=== PATIENT | male | born 1955 | race Caucasian/White ===

== ENCOUNTER 2021-07-06 11:10 | Emergency (ER) | payer BC ==
[~2021-07-06] VITALS: Ht 177.8 cm; Wt 114.4 kg
[~2021-07-06 11:10] MED LIST: CELEXA10 MG PO; HYDROCODON-ACE1 EA11 PO; NORCO 5-325 TA1 EACH PO
--- OUTSIDE RECORDS SUMMARY | 2021-07-06 11:12 | XMS ---
PreManage Notification: CHATA FRANKLIN Security Equipment Processer Storage Events No recent Security Events currently on file [facility] There are no care providers on record at this time. Sky has no Care Guidelines for this patient. Aleksandr VISIT COUNT (12 MO.) 1 DEXTER Worley TOTAL 1 NOTE: Visits indicate total known visits. ED/C VISIT TRACKING (12 MO.) 07/06/2021 11:10 [facility] [place] TYPE: Emergency COMPLAINT: - LOWER BACK PAIN LEFT SIDE INPATIENT VISIT TRACKING (12 MO.) No inpatient visits to display in this time frame [email or web address]
[2021-07-06] MEDS ORDERED: GLIPIZIDE ER10 MG PO (12:19)
[2021-07-06] MEDS ORDERED: DULOXETINE HCL60 MG PO (12:19)
[2021-07-06] MEDS ORDERED: METFORMIN HCL500 M1 PO (12:19)
[2021-07-06] MEDS ORDERED: GABAPENTIN300 MG PO (12:20)
[2021-07-06] MEDS ORDERED: CELECOXIB100 MG PO (12:20)
[2021-07-06] MEDS ORDERED: OXYCODONE HCL5 MG PO (15:38)
[2021-07-06] MEDS ORDERED: FLOMAX0.4 MG PO (15:38)
[2021-07-06] MEDS ORDERED: ONDANSETRON ODT4 MG PO (15:42)
== END 2021-07-06 16:10 | disposition home or self-care (01) ==
LOC: ED 11:10
DX: N13.2 Hydronephrosis with renal and ureteral calculous obstruction (principal); I10 Essential (primary) hypertension; E11.9 Type 2 diabetes mellitus without complications; Z87.891 Personal history of nicotine dependence; Z88.5 Allergy status to narcotic agent; Z79.84 Long term (current) use of oral hypoglycemic drugs; Z79.899 Other long term (current) drug therapy
CPT/HCPCS: 74176; 80048; 81001; 85025; 96374; 99284-25; J1885

== ENCOUNTER 2022-03-17 10:27 | Emergency (ER) | payer BC ==
[~2022-03-17] VITALS: Ht 177.8 cm; Wt 112.9 kg
[~2022-03-17 10:27] MED LIST changes: +CELECOXIB100 MG PO; +DULOXETINE HCL60 MG PO; +FLOMAX0.4 MG PO; +GABAPENTIN300 MG PO; +GLIPIZIDE ER10 MG PO; +METFORMIN HCL500 M1 PO; +ONDANSETRON ODT4 MG PO; +OXYCODONE HCL5 MG PO
--- OUTSIDE RECORDS SUMMARY | 2022-03-17 10:34 | XMS ---
PreManage Notification: CHATA FRANKLIN Security Parts Expediter Events No recent Security Events currently on file CRITERIA MET - PDM CARE PROVIDERS LASHAUN [facility] 07/08/2021-Current PHONE: Unknown Sky has no Care Guidelines for this patient. EPelon VISIT COUNT (12 MO.) 1 Karthik Moran M.C. 2 DEXTER Worley TOTAL 3 NOTE: Visits indicate total known visits. ED/UCC VISIT TRACKING (12 MO.) 03/17/2022 10:28 [facility] [place] TYPE: Emergency COMPLAINT: - FLU SYMPTOMS, SOB [facility] DIAGNOSES: - Poss kidney stone - Nausea - Unspecified renal colic - Flank Pain - Calculus of ureter 07/06/2021 11:10 [facility] [place] TYPE: Emergency COMPLAINT: - LOWER BACK PAIN LEFT SIDE DIAGNOSES: - Allergy status to narcotic agent - Unspecified abdominal pain - Type 2 diabetes mellitus without complications - half-way (current) use of oral hypoglycemic drugs - Essential (primary) hypertension - Other silk opener (current) drug therapy - Hydronephrosis with renal and ureteral calculous obstruction - Personal history of nicotine dependence INPATIENT VISIT TRACKING (12 MO.) No inpatient visits to display in this time frame [id number]
[2022-03-17] MEDS ORDERED: CHLORTHALIDONE25 MG PO (11:00)
--- NOTE | 2022-03-17 14:04 | EKG ---
[facility] [address] [facility] [place] [address] Signed Normal sinus rhythm Normal ECG When compared with ECG of 05-AUG-2021 11:32, No significant change was found Confirmed by GLADYS PURDY MD ([id number]) on 03/17/2022 2:04:45 PM Electronically Signed By: GLADYS PURDY MD 03/17/22 1404 PATIENT NAME: SWEETIEMARANDACHATA Electrocardiogram DATE OF : 59 PHYSICIAN: GLADYS PURDY MD REPORT #: [id number] REPORT IS CONFIDENTIAL AND NOT TO BE RELEASED WITHOUT AUTHORIZATION
== END 2022-03-17 12:54 | disposition home or self-care (01) ==
LOC: ED 10:27
DX: U07.1 COVID-19 (principal); I10 Essential (primary) hypertension; E11.9 Type 2 diabetes mellitus without complications; Z87.891 Personal history of nicotine dependence; Z88.5 Allergy status to narcotic agent; Z79.899 Other long term (current) drug therapy; Z79.84 Long term (current) use of oral hypoglycemic drugs
CPT/HCPCS: 71045; 93005; 93010; 94640; 94664

== ENCOUNTER 2023-02-11 10:20 | Day surgery (SDC) | payer OTHER ==
[2023-02-09 11:33] VITALS: BP 110/77
[~2023-02-11] VITALS: Ht 177.8 cm; Wt 105.0 kg
--- NOTE | ~2023-02-11 | EKG ---
[facility] [address] [facility] [place], [place] [address] Draft EK completed, results pending confirmation PATIENT NAME: NOEMICHATA KOEHLER Electrocardiogram DATE OF : 59 PHYSICIAN: PRELIMINARY REPORT #: [id number] REPORT IS CONFIDENTIAL AND NOT TO BE RELEASED WITHOUT AUTHORIZATION
[~2023-02-11 10:20] MED LIST changes: +CHLORTHALIDONE25 MG PO; +LABETALOL HCL100 MG PO; +LISINOPRIL20 MG PO
[2023-02-11 10:47] VITALS: BP 134/86
[2023-02-11] MEDS ORDERED: OZEMPIC0.25 MG/0. SUB-Q (10:57)
[2023-02-11 12:21] VITALS: BP 117/77
--- NOTE | 2023-02-11 12:55 | NUR ---
02/11/23 1255 Maria Victoria Díaz 1205 PT ARRIVED IN PACU SLEEPY LAYING PRONE. REPOSITIONED TO L SIDE WITH 3 PERSON ASSIST. [address] TO TRANSFER PT TO ER. 1220 TC TO ER WITH UPDATE ON PT. 1230 TO ER VIA STRETCHER. REPORT GIVEN TO ER NURSES. FRIEND AT BEDSIDE.
--- NOTE | 2023-02-11 13:47 | NUR ---
1120: DURING CHECK IN PROCESS PATIENT ASKED IF HE COULD SPEAK WITH DR. HUYNH TODAY ABOUT CONCERNS REGARDING HIS DECLINE IN HEALTH SINCE SEEING DR. HUYNH LAST WEEK. PATIENT C/O SIGNIFICANT INCREASE IN FATIGUE AND SHORTNESS OF BREATH. ALSO C/O SOME CONFUSION AND CHANGES IN MENTATION. PATIENT STATES THIS HAS BEEN INCREASING OVER THE LAST WEEK. I NOTIFIED DR. HUYNH IN PERSON ABOUT PATIENT'S CONCERNS AND CONVEYED THAT I ALSO HAD CONCERNS ABOUT PATIENT STATUS. DR. HUYNH AGREED TO COME SPEAK WITH PATIENT IN DAY SURGERY ROOM.
--- NOTE | 2023-02-11 13:52 | NUR ---
1130: NOTIFIED BY LAB OF CRITICAL WBC COUNT. RESULT CALLED TO DR. HUYNH'S OFFICE. PALLIATIVE NURSE IN ROOM EVALUATING PATIENT. PALLIATIVE NURSE NOTIFIED OF PATIENT'S CRITICAL LAB. 1145: DR. HUYNH IN ROOM EVALUATING PATIENT.
[2023-02-11] MEDS ORDERED: HYDROCODON-ACE1 EA11 PO (20:17)
[2023-02-11] MEDS ORDERED: ALLOPURINOL300 MG PO (20:28)
--- NOTE | 2023-02-12 | EKG ---
[facility] [address] [place], [place] [address] Signed Normal sinus rhythm Normal ECG When compared with ECG of 11-FEB-2023 10:41, (Unconfirmed) No significant change was found Confirmed by MELVIN LEES MD ([id number]) on 02/12/2023 12:00:04 AM Electronically Signed By: MELVIN LEES MD 02/12/23 0000 PATIENT NAME: SWEETIEMARANDACHATA Electrocardiogram DATE OF : 59 PHYSICIAN: MELVIN LEES MD REPORT #: [id number] REPORT IS CONFIDENTIAL AND NOT TO BE RELEASED WITHOUT AUTHORIZATION
--- NOTE | 2023-02-13 17:58 | PATH ---
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 Evaluate MPN vs. AML. See attached. C92.10 (chronic myeloid leukemia, BCR/ABL-positive, not having achieved remission) DIAGNOSIS SUMMARY: Peripheral blood - Marked neutrophilia with left shift. - Negative for blasts. - Mild thrombocytopenia. Bone marrow aspirate smears, clot section/cell block and trephine biopsy - Hypercellular bone marrow with marked myeloid hyperplasia and features consistent with chronic myelogenous leukemia (CML). - Negative for dyspoiesis. - Negative for increased blasts. - Negative for increase in plasma cells or infiltrative bone marrow processes. - Please see Diagnostic Comment. DIAGNOSTIC COMMENT: The clinical concern for myeloproliferative neoplasm is noted. Morphologic evaluation of the bone marrow demonstrates markedly hypercellular bone marrow with myeloid hyperplasia. The myeloid are left-shifted, however, with no increase in blasts identified. Increased bone marrow reticulin fibrosis is also noted. Peripheral blood shows marked neutrophilia with shift toward immaturity, including many myelocytes. Overall morphologic features are consistent with myeloproliferative neoplasm. FISH study for BCR/ABL is positive consistent with chronic myelogenous leukemia (CML). Cytogenetic study and BCR/ABL by PCR are pending and will be reported in an addendum. Preliminary findings communicated to Dr. Jaime on 02/12/2023. NA:clm:C1NR PERIPHERAL BLOOD: HEMOGRAM ([facility], 02/11/2023): WBC 46.6 K/uL, RBC 5.02 M/uL, HGB 14.1 g/dL, HCT 43.4%, MCV 86.5 fL, MCH 28.1 pg, MCHC 32.5 g/dL, RDW 15.6%, PLT 147 K/uL, MPV 7.7 fL. PATIENT NAME: CHATA FRANKLIN PATHOLOGY DATE OF : 59 REPORT #: [id number] PHYSICIAN: PIETER VALLE PCP: POONAM WILKS MD REPORT IS CONFIDENTIAL AND NOT TO BE RELEASED WITHOUT AUTHORIZATION [facility] [address] [place], [place] [address] Signed DIFFERENTIAL COUNT (manual): 41% neutrophils, 23% lymphocytes, 12% monocytes, 4% eosinophils, 20% myelocytes. Review of the peripheral blood smear and CBC data demonstrates that the RBCs are normal in number and are normocytic and normochromic with no anemia present. The WBCs are markedly increased in number with marked neutrophilia and shift toward immaturity, including many myelocytes. No blasts are seen. Monocytosis is also present, and the monocytes have reactive morphology. The platelets are slightly decreased in number with unremarkable morphology. BONE MARROW: BONE MARROW ASPIRATE SMEARS: The bone marrow aspirate smears are adequately cellular for evaluation. Trilineage hematopoiesis is present with myeloid hyperplasia noted. There is a shift toward immaturity with many myelocytes and promyelocytes seen. No increase in blasts is identified. No dyserythropoiesis is present. The megakaryocytes are scattered and appear normal in number with many small micromegakaryocytes encountered. BONE MARROW DIFFERENTIAL COUNT: Blasts 2%, promyelocytes 7%, myelocytes 12%, neutrophils 47%, lymphocytes 11%, monocytes 2%, eosinophils 9%, and 12% erythroid. BONE MARROW CORE BIOPSY AND CLOT SECTION: The bone marrow core biopsy demonstrates hypercellular bone marrow for age with cellularity approaching 95%. Trilineage hematopoiesis is present with myeloid hyperplasia noted. Left-shifted myeloid precursors are frequently seen; however, no increase in blasts is identified. There are no lymphoid aggregates, granulomas, or metastatic tumor cells present. The megakaryocytes appear normal in number with occasional small, unilobated, hypochromatic megakaryocytes encountered. The clot section shows similar findings. SPECIAL STAINS (with appropriate reactive controls): - Iron (aspirate smears): Storage iron present; negative for ring sideroblasts. - Iron (block B1): Storage iron present; negative for ring sideroblasts. - Reticulin stain (block A1): Moderate increase in bone marrow reticulin fibrosis (MF-2). IMMUNOHISTOCHEMICAL STAINS (block A1, with appropriate reactive controls): - CD34: Negative for increased number of blasts (1-2%). - CD117: Negative for increased number of blasts (1-2%). - Myeloperoxidase: Highlights myeloid precursors; confirms marked myeloid hyperplasia. PATIENT NAME: CHATA FRANKLIN PATHOLOGY DATE OF : 59 REPORT #: [id number] PHYSICIAN: PIETER PATHOLOGY PCP: POONAM WILKS MD REPORT IS CONFIDENTIAL AND NOT TO BE RELEASED WITHOUT AUTHORIZATION [address] [address] Signed - CD71: Highlights erythroid precursors, relatively decreased. - Factor VIII: Highlights megakaryocytes. NA:clm FLOW CYTOMETRY: Bone marrow aspirate, flow cytometry: - No increase in blasts (0.4% myeloblasts). - Myeloid with atypical maturation. - No atypical lymphoid cell population. - See Comment. COMMENT: Clinical concern for myeloproliferative neoplasm is noted. No increase in blasts is present. The myeloid show some decreased CD10 expressions and atypical maturation in the CD13 vs CD16 plot are observed. Correlation with clinical, morphologic, and genetic findings is recommended for full assessment. FLOW CYTOMETRY ANALYSIS: FLOW DIFFERENTIAL (% Total CD45 vs. SSC gating): Myeloid 90%; Lymphoid 3%; Monocyte 3%; Dim CD45/Blast: 0.4%. Cell Count: 5.6 x 10*3/uL. POPULATION ANALYSIS: BLASTS: Analysis of the dim CD45 gate demonstrates 0.4% myeloblasts by CD34/CD117. A discrete hematogone population is not detected. LYMPHOID CELLS: The lymphocyte gate comprises 3% of total events and includes 75% T-cells with a CD4:CD8 ratio of 0.8:1 and normal cunningham T-cell antigen expression. 16% of lymphocytes are polyclonal B-cells with a kappa:lambda ratio of 1.1:1. The remainders are NK-cells. MYELOID CELLS: The myeloid population comprises 90% of the total events. Some decreased SSC, some decreased CD10 expression and atypical maturation in the CD13 vs CD16 plot are observed. MONOCYTES: The monocyte population comprises 3% of the total events. Monocytes are not increased. No aberrant immunophenotypic expression is detected. PLASMA CELLS: 0.3% plasma cells are detected in the screening gate neg-dimCD45/CD38. Plasma cells are CD45 dim and positive for CD19. ANTIBODIES USED: KAPPA, LAMBDA, CD20, CD10, CD19, CD23, CD38, CD16, CD56, CD8, CD5, CD2, CD4, CD7, CD3, CD14, CD33, CD13, HLADR, CD34, CD117, CD15, CD45: TOTAL ANTIBODIES USED: 23. JNB FINAL DIAGNOSIS PERFORMED BY: Irena Holguin MD, Feb 12 2023 12:33PM PATIENT NAME: CHATA FRANKLIN PATHOLOGY DATE OF : 59 REPORT #: [id number] PHYSICIAN: PIETER PATHOLOGY PCP: POONAM WILKS MD REPORT IS CONFIDENTIAL AND NOT TO BE RELEASED WITHOUT AUTHORIZATION [facility] [address] [place], [place] [address] Signed CYTOGENETICS: Pending, to be reported by addendum. FISH ANALYSIS: Bone marrow, FISH (fluorescence in situ hybridization) RESULT: Detected INTERPRETATION: BCR/ABL1 t(9;22) rearrangement: Detected. Fluorescence in situ hybridization (FISH) analysis was performed using a tricolor, dual fusion BCR/ABL1 probe set used to detect the (9;22) translocation associated with CML and less commonly ALL or AML. The tri color probe set also detects derivative chromosome 9 deletions. This analysis showed the abnormal dual fusion positive signal pattern in 93.5% of cells consistent with the BCR-ABL1 gene fusion. This represents an ABNORMAL result. This analysis is limited to abnormalities detectable by the specific probes included in the study. FISH results should be interpreted within the context of a full clinical and hematopathology evaluation. ISCN: Probe Set Detail: BCR/ABL1/ASS1 t(9;22): nuc tio 9q34(ABL1x3,ASS1x2),22q11.2(BCRx3)(ABL1 con BCRx2)[187/200] References: [place] of Genetics and Cytogenetics in Oncology and Hematology [email or web address].org/ FISH Analysis Summary: Nuclei Scored: 200 Scoring Method: Manual; CPT Code 26295 Number of Probe units: 1 Multiplex Cells analyzed: Interphase Probe sets: Chrom 9: ABL1, Chrom 9: ASS1, Chrom 22: BCR GROSS DESCRIPTION: Two specimens are received in two containers. A. The specimen, labeled and designated "Baton, bone marrow core biopsy," is received in formalin and consists of two pieces of red-brown to red-pink, clot-like material and bone (1.0-6.5 cm in length x up to 0.2 cm in diameter). The specimen is submitted entirely in cassette (A1) following decalcification in Immunocal. B. The specimen, labeled and designated "Baton, bone marrow clot biopsy," is received in formalin and consists of a portion of red-brown clot-like material PATIENT NAME: CHATA FRANKLIN PATHOLOGY DATE OF : 59 REPORT #: [id number] PHYSICIAN: PIETER VALLE PCP: POONAM WILKS MD REPORT IS CONFIDENTIAL AND NOT TO BE RELEASED WITHOUT AUTHORIZATION [address] [address] Signed (2.5 x 2.0 x 0.3 cm in aggregate). The specimen is submitted entirely in cassette (B1). VB (under the direct supervision of a pathologist) The Gross Description was prepared using a voice recognition system. The report was reviewed for accuracy; however, sound-alike word errors, addition and/or deletions may occur. If there is any question about this report, please contact Client Services. ADDITIONAL NOTES: Immunohistochemical and/or in situ hybridization studies were performed on this case with the appropriate positive controls that react as expected. This test was developed and its performance characteristics determined by The Society. It has not been cleared or approved by the U.S. Food and Drug Administration. The FDA has determined that such clearance or approval is not necessary. This test is used for clinical purposes. It should not be regarded as investigational or for research. The Society is certified under the Clinical Laboratory Improvement Amendments of 1988 (CLIA) as qualified to perform high complexity clinical laboratory testing. This assay has not been validated for specimens that have been decalcified. In this case, certain antibodies were performed by both immunohistochemistry and flow cytometry analysis because flow cytometry analysis did not fully explain all the light microscopic findings. Immunohistochemistry aided in the analysis. Both methods are deemed medically necessary in this case. This test was developed and its performance characteristics determined by [employer]. It has not been cleared or approved by the US Food and Drug Administration. The Oligo DNA probe vendor for this study was [employer]. This test was developed and its performance characteristics determined by The Society. It has not been cleared or approved by the US Food and Drug Administration. The FDA does not require this test to go through premarket FDA review. This test is used for clinical purposes. It should not be regarded as investigational or for research. This laboratory is certified under the Clinical Laboratory Improvement Amendments (CLIA) as qualified to perform high complexity clinical laboratory testing. PERFORMING LABORATORY: The technical preparation was performed by [facility], [address] PATIENT NAME: CHATA FRANKLIN PATHOLOGY DATE OF : 59 REPORT #: [id number] PHYSICIAN: [facility] PCP: POONAM WILKS MD REPORT IS CONFIDENTIAL AND NOT TO BE RELEASED WITHOUT AUTHORIZATION [facility] [address] [facility] [place] [place] [address] [place] [address] (CLIA#: [id number]). Professional interpretation was performed by [facility], [address] [place] [address] (CLIA# [id number]). The technical component of the FISH testing was performed by [facility], [address] [place] [address] (CLIA#: [id number]). Professional interpretation was performed by [facility] - [facility], [address] [place] [address] (CLIA#: [id number]). FINAL DIAGNOSIS PERFORMED BY: Adilene Shore MD, Pathologist Feb 13 2023 3:12PM A portion of the technical component was performed by [facility], [address] [place] [address] (CLIA# [id number]). A portoin of the technical component was performed by [facility], [address] [place] [address] (CLIA#: [id number]). Professional interpretation was performed by [facility], [address] [place] [address] (CLIA# [id number]). IMAGES: A: [id number] A: [id number] A: [id number] A: [id number] A: [id number] Diagnostician: Irena Holguin MD Pathologist Electronically Signed 02/13/2023 Copies: ~ PATIENT NAME: SWEETIEMARANDACHATA PATHOLOGY DATE OF : 59 REPORT #: [id number] PHYSICIAN: PIETER VALLE PCP: POONAM WILKS MD REPORT IS CONFIDENTIAL AND NOT TO BE RELEASED WITHOUT AUTHORIZATION
== END 2023-02-11 12:26 | disposition home or self-care (01) ==
LOC: OPS 10:20 → DS 10:20 → OPS 12:00
PROVIDERS: ATTEND Specialist
PROC: 07DR3ZX Extraction of Iliac Bone Marrow, Percutaneous Approach, Diagnostic (ICD-10-PCS; principal; 2023-02-11 12:00)
DX: C92.10 Chronic myeloid leukemia, BCR/ABL-positive, not having achieved remission (principal); F17.210 Nicotine dependence, cigarettes, uncomplicated; E11.9 Type 2 diabetes mellitus without complications; F32.A Depression, unspecified; M54.50 Low back pain, unspecified; I10 Essential (primary) hypertension; G89.29 Other chronic pain; Z79.899 Other long term (current) drug therapy; Z79.85 Long-term (current) use of injectable non-insulin antidiabetic drugs; Z79.84 Long term (current) use of oral hypoglycemic drugs
CPT/HCPCS: 01112; 80053; 82232; 83615; 85025; 93005; 93010; J2704; J7121

== ENCOUNTER 2023-02-11 12:26 | Inpatient (IN) | payer OTHER, MEDICARE ==
[~2023-02-11] VITALS: Ht 177.8 cm; Wt 104.1 kg
[~2023-02-11 12:26] MED LIST changes: +OZEMPIC0.25 MG/0. SUB-Q
--- OUTSIDE RECORDS SUMMARY | 2023-02-11 12:29 | XMS ---
PreManage Notification: CHATA FRANKLIN Security Relay Associate Events No recent Security Events currently on file CRITERIA MET - PDMP CARE PROVIDERS LASHAUN [facility] 07/08/2021-Current PHONE: Unknown Sky has no Care Guidelines for this patient. Aleksandr VISIT COUNT (12 MO.) 2 DEXTER Worley TOTAL 2 NOTE: Visits indicate total known visits. ED/UCC VISIT TRACKING (12 MO.) 02/11/2023 12:26 [facility] [place] TYPE: Emergency COMPLAINT: - ALTERED LOC 03/17/2022 10:28 [facility] [place] TYPE: Emergency COMPLAINT: - FLU SYMPTOMS, SOB DIAGNOSES: - Allergy status to narcotic agent - COVID-19 - Essential (primary) hypertension - prison (current) use of oral hypoglycemic drugs - Other iron molder helper (current) drug therapy - Personal history of nicotine dependence - Shortness of breath - Type 2 diabetes mellitus without complications INPATIENT VISIT TRACKING (12 MO.) No inpatient visits to display in this time frame [id number]
[2023-02-11 18:48] VITALS: BP 111/64
--- NOTE | 2023-02-11 18:58 | NUR ---
RECEIVED REPORT FROM BUSINESS INTELLIGENCE REPORTING ANALYST MELODIE AT 1647 HOURS. PT AWAKE, ALERT, ORIENTED X4, REPORTS PAIN 3 OUT OF TEN IN MID BACK AND 2 OUT OF 10 IN LOW BACK. PT TRANSFERRED VIA ER BED, ROOM 6 TO ROOM 108 ON M/S. PT ABLE TO STAND AND TRANSFER WITHOUT ASSISTANCE FROM ER BED TO HOSPITAL BED. ADMISSION AND ASSESSMENTS, VS COMPLETE. PT GIVEN 2 UNITS INSULIN FOR CBG 186. (PER EMAR SLIDING SCALE). DINNER TRAY AT BEDSIDE. PT UP TO TOILET WITH SBA AND LINE/TUBE MANAGEMENT, HAD SMALL LIQUID BM AND 150ML CLEAR YELLOW URINE OUTPUT. PT SIPPING WATER AND DRANK MILK. HAD NAUSEA FOR ABOUT 30 SECONDS BETWEEN EATING AND TOILETING, BUT THAT HAS SINCE GONE AWAY. PT HAS A BANDAID COVERING THE BIOPSY SITE ON HIS LEFT GLUTE, LATERAL TO GLUTEAL CLEFT. PERSONAL BELONGINGS IN ROOM WITH PT, FAMILY FRIEND IN VISITING. PT DENIES FURTHER NEEDS AT THIS TIME. CALL LIGHT IN REACH.
--- NOTE | 2023-02-11 19:36 | NUR ---
REPORT RECEIVED FROM BLESSING CANTU. pt RESTING IN BED AWAKE. IVF INFUSING WNL. SBA TO RESTROOM. VERBALZIES UNDERSTANDING TO USE CALL LIGHT WHEN FINISHED.
--- NOTE | 2023-02-11 20:05 | NUR ---
PHONE CALL TO MD, TELEPHONE ORDER RECEIVED FOR PRN PAIN MEDICATIONS. REPEATED BACK FOR VERIFICATION. EMAR UPDATED.
[2023-02-11] MEDS ORDERED: HYDROCODON-ACE1 EA11 PO (20:17)
[2023-02-11 20:20] VITALS: BP 106/56
[2023-02-11] MEDS ORDERED: ALLOPURINOL300 MG PO (20:28)
--- NOTE | 2023-02-11 20:49 | NUR ---
pt RESTING IN BED, DROWSY. PRN PAIN MEDICATION ADMINISTERED FOR 2.5/10 REPORTED BACK PAIN. pt TAKES 1/2 TABLET OF NORCO FOUR TIMES A DAY, MD UPDATED. 1/2 TABLET ADMINISTERED PER REQUEST. ASSESSMENT COMPLETE. IV SITE FLUSHED WNL, BLOOD RETURN NOTED. DAMPPROOFER RN IN ROOM UPDATING pt ON TRANSFER TO [facility]. QUESTIONS ANSWERED. pt CALLING FAMILY AND FRIENDS, PROVIDED WITH ROOM NUMBER AT [facility]. CALL LIGHT IN REACH.
--- NOTE | 2023-02-11 21:43 | NUR ---
pt OFF FLOOR WITH TEGAN FIRE AT 2134. ATTEMPT TO CALL REPORT TO [facility] AT 2139. RN TO RETURN CALL.
--- NOTE | 2023-02-11 21:54 | NUR ---
PHONE CALL FROM [facility] RN, REPORT GIVEN BY THIS RN.
== END 2023-02-11 21:35 | disposition short-term general hospital (02) | DRG 836 ==
LOC: ED 12:26 → MS 16:35
PROVIDERS: ADMIT Internal Medicine; ATTEND Internal Medicine
DX: C92.00 Acute myeloblastic leukemia, not having achieved remission (principal); R06.02 Shortness of breath; Z20.822 Contact with and (suspected) exposure to COVID-19; R29.810 Facial weakness; I10 Essential (primary) hypertension; E11.9 Type 2 diabetes mellitus without complications; F32.A Depression, unspecified; G89.29 Other chronic pain; M54.50 Low back pain, unspecified; Z79.84 Long term (current) use of oral hypoglycemic drugs; Z88.8 Allergy status to other drugs, medicaments and biological substances; Z87.891 Personal history of nicotine dependence; Z98.890 Other specified postprocedural states; Z96.652 Presence of left artificial knee joint; Z90.49 Acquired absence of other specified parts of digestive tract; Z79.899 Other long term (current) drug therapy
CPT/HCPCS: 36415; 70544; 70549; 70551; 71250; 80048; 83735; 84100; 84550; 85384; 85610; 85730; 87502; 93005; 93010; 96360; 99285-25; A9270; A9577; C9803; J1815; J7030; U0002

== ENCOUNTER 2023-03-09 09:45 | Emergency (ER) | payer OTHER, MEDICARE ==
[~2023-03-09] VITALS: Ht 177.8 cm; Wt 108.0 kg
[~2023-03-09 09:45] MED LIST changes: +ALLOPURINOL300 MG PO
--- OUTSIDE RECORDS SUMMARY | 2023-03-09 09:49 | XMS ---
PreManage Notification: CHATA FRANKLIN Security Manager Application Development Events No recent Security Events currently on file CRITERIA MET - [facility] - 2 Visits in 30 Days CARE PROVIDERS LASHAUN [facility] 07/08/2021-Current PHONE: Unknown Sky has no Care Guidelines for this patient. Aleksandr VISIT COUNT (12 MO.) 3 [facility] TOTAL 3 NOTE: Visits indicate total known visits. ED/UCC VISIT TRACKING (12 MO.) 03/09/2023 09:46 [facility] [place] TYPE: Emergency COMPLAINT: - L LEG PAIN 02/11/2023 12:26 [facility] [place] TYPE: Emergency COMPLAINT: - ALTERED LOC 03/17/2022 10:28 [facility] [place] TYPE: Emergency COMPLAINT: - FLU SYMPTOMS, SOB DIAGNOSES: - Allergy status to narcotic agent - COVID-19 - Essential (primary) hypertension - senior living (current) use of oral hypoglycemic drugs - Other bank reconciliator (current) drug therapy - Personal history of nicotine dependence - Shortness of breath - Type 2 diabetes mellitus without complications INPATIENT VISIT TRACKING (12 MO.) 02/12/2023 01:23 [facility] TYPE: Transplant DIAGNOSES: [address]. Acute myeloblastic leukemia, not having achieved remission [address]. New Diagnosis AML [address]. Hypokalemia 02/11/2023 16:[address] [facility] [place] TYPE: Medical Surgical COMPLAINT: - AML, LEUKOSTASIS DIAGNOSES: - Acquired absence of other specified parts of digestive tract - Acquired absence of other specified parts of digestive tract - Acute myeloblastic leukemia, not having achieved remission - Allergy status to other drugs, medicaments and biological substances - Allergy status to other drugs, medicaments and biological substances - Contact with and (suspected) exposure to COVID-19 - Contact with and (suspected) exposure to COVID-19 - Depression, unspecified - Depression, unspecified - Essential (primary) hypertension - Essential (primary) hypertension - Facial weakness - Facial weakness - senior living (current) use of oral hypoglycemic drugs - senior living (current) use of oral hypoglycemic drugs - Low back pain, unspecified - Low back pain, unspecified - Other chronic pain - Other chronic pain - Other fatigue - Other fpc (current) drug therapy - Other fpc (current) drug therapy - Other specified postprocedural states - Other specified postprocedural states - Personal history of nicotine dependence - Personal history of nicotine dependence - Presence of left artificial knee joint - Presence of left artificial knee joint - Shortness of breath - Shortness of breath - Type 2 diabetes mellitus without complications - Type 2 diabetes mellitus without complications [email or web address]
[2023-03-09] MEDS ORDERED: METFORMIN HCL500 M1 PO (10:18)
[2023-03-09] MEDS ORDERED: OZEMPIC0.25 MG/0. SQ (10:19)
[2023-03-09] MEDS ORDERED: GLEEVEC400 MG PO (10:19)
[2023-03-09] MEDS ORDERED: GLIPIZIDE ER10 MG PO (10:19)
[2023-03-09] MEDS ORDERED: LISINOPRIL20 MG PO (10:19)
[2023-03-09] MEDS ORDERED: PREDNISONE20 MG PO (12:57)
[2023-03-09 13:28] VITALS: BP 139/89
== END 2023-03-09 13:28 | disposition home or self-care (01) ==
LOC: ED 09:45
DX: M54.32 Sciatica, left side (principal); I10 Essential (primary) hypertension; E11.9 Type 2 diabetes mellitus without complications; Z87.891 Personal history of nicotine dependence; Z88.5 Allergy status to narcotic agent; Z79.84 Long term (current) use of oral hypoglycemic drugs; Z79.899 Other long term (current) drug therapy
CPT/HCPCS: 99283

== ENCOUNTER 2023-10-12 11:41 | Emergency (ER) | payer OTHER, MEDICARE ==
[~2023-10-12] VITALS: Ht 177.8 cm; Wt 112.0 kg
[~2023-10-12 11:41] MED LIST changes: +GABAPENTIN600 MG PO; +GLEEVEC400 MG PO; +HYDROCODON-ACE1 EA10 PO; +OZEMPIC0.25 MG/0. SQ; +PREDNISONE20 MG PO; +TAMSULOSIN HCL0.4 MG PO
[2023-10-12 13:08] LABS: BASOPHILS 0.9 % (0-2); EOSINOPHILS 1.2 % (0-6); HEMATOCRIT 41.7 % (35.0-50.0); HEMOGLOBIN 14.7 g/dL (12.0-18.0); LYMPHOCYTES 30.8 % (24-44); MCH 32.1 (27-36); MCHC 35.1 g/dl (30-36); MCV 91.4 fl (81-99); MONOCYTES 10.4 % (0-12); NEUTROPHILS 56.7 % (39-80); PLATELET COUNT 195 K/uL (140-440); RBC 4.57 M/ul (4.3-5.7); RDW 12.9 (10.5-15.0)
--- OUTSIDE RECORDS SUMMARY | 2023-10-12 13:20 | XMS ---
PreManage Notification: CHATA FRANKLIN Security Uniform Maker Events No recent Security Events currently on file CRITERIA MET - [facility] - 2 Visits in 30 Days CARE PROVIDERS POONAM WILKS [facility] 07/08/2021-Current PHONE: Unknown TITI MILNER Emergency Medicine Current PHONE: [phone] MAYLIN BURRELL Nurse Practitioner Current PHONE: [phone] [facility] has no Care Guidelines for this patient. EPelon VISIT COUNT (12 MO.) [address] [facility] TOTAL 4 NOTE: Visits indicate total known visits. ED/UCC VISIT TRACKING (12 MO.) 10/12/2023 11:43 [facility] TYPE: Emergency COMPLAINT: - R RIB/ARM PAIN, L LEG PAIN, WEAKNESS 09/26/2023 12:02 [facility] TYPE: Emergency COMPLAINT: - DIFFICULTY BREATHING DIAGNOSES: - Allergy status to narcotic agent - Essential (primary) hypertension - quality improvement manager (current) use of oral hypoglycemic drugs - Other chest pain - Other shelter (current) drug therapy - Personal history of nicotine dependence - Shortness of breath - Type 2 diabetes mellitus without complications - Unspecified abdominal pain 03/09/2023 09:46 [facility] TYPE: Emergency COMPLAINT: - L LEG PAIN DIAGNOSES: - Allergy status to narcotic agent - Essential (primary) hypertension - prison (current) use of oral hypoglycemic drugs - Other shelter (current) drug therapy - Pain in left leg - Personal history of nicotine dependence - Sciatica, left side - Type 2 diabetes mellitus without complications 02/11/2023 12:26 [facility] TYPE: Emergency COMPLAINT: - ALTERED LOC INPATIENT VISIT TRACKING (12 MO.) [facility] [place] [facility] DIAGNOSES: - Essential (primary) hypertension - Other reduced mobility - Other specified health status - Other specified postprocedural states - Type 2 diabetes mellitus with diabetic polyneuropathy - Unsteadiness on feet - Lumbar Radiculopathy 07/21/2023 05:49 [facility] Matt PELAYO (Matt Gutierrez) TYPE: Surgical Services DIAGNOSES: - Radiculopathy, lumbar region - Spinal stenosis, lumbar region with neurogenic claudication - Spondylolisthesis, lumbar region 02/12/2023 01:23 [facility] TYPE: Transplant DIAGNOSES: 78189. Acute myeloblastic leukemia, not having achieved remission [id number]. New Diagnosis AML [id number]. Hypokalemia 02/11/2023 16:35 [facility] TYPE: Medical Surgical COMPLAINT: - AML, [...] - Facial weakness - Facial weakness - prison (current) use of oral hypoglycemic drugs - quality improvement manager (current) use of oral hypoglycemic drugs - Low back pain, unspecified - Low back pain, unspecified - Other chronic pain - Other chronic pain - Other fatigue - Other group captain (current) drug therapy - Other group captain (current) drug therapy - Other specified postprocedural states - Other specified postprocedural states - Personal history of nicotine dependence - Personal history of nicotine dependence - Presence of left artificial knee joint - Presence of left artificial knee joint - Shortness of breath - Shortness of breath - Type 2 diabetes mellitus without complications - Type 2 diabetes mellitus without complications [email or web address]
[2023-10-12 13:31] LABS: ALBUMIN/GLOBULIN RATIO 1.05 (1.1-2.4); ANION GAP 14.6 (7-21); BILIRUBIN, TOTAL 0.7 ng/dL (0.2-1.0); BUN/CREATININE RATIO 18.18 (6.0-28.6); CALCIUM 9.5 mg/dL (8.5-10.1); CREATININE, SERUM 0.99 mg/dL (0.70-1.30); MAGNESIUM 1.8 mg/dL (1.8-2.4); POTASSIUM 3.6 mmol/L (3.5-5.1); PROTEIN, TOTAL 7.8 g/dL (6.4-8.2); TSH, 3RD GENERATION 0.551 uIU/mL (0.358-3.740)
[2023-10-12 14:30] LABS: BILIRUBIN, URINE NEGATIVE (negative); BLOOD/HGB, URINE NEGATIVE (Negative); KETONE, URINE NEGATIVE (Negative); LEUK ESTERASE, URINE NEGATIVE (negative); NITRITE, URINE NEGATIVE (negative)
[2023-10-12 15:41] VITALS: BP 153/103
== END 2023-10-12 15:42 | disposition home or self-care (01) ==
LOC: ED 11:41
PROVIDERS: Emergency Medicine
DX: R53.1 Weakness (principal); I10 Essential (primary) hypertension; E11.9 Type 2 diabetes mellitus without complications; Z87.891 Personal history of nicotine dependence; Z88.5 Allergy status to narcotic agent; Z79.899 Other long term (current) drug therapy; Z79.84 Long term (current) use of oral hypoglycemic drugs
CPT/HCPCS: 36415; 71045; 80053; 81003; 82553; 83690; 83735; 84443; 85025; 99283-25; A9270

== ENCOUNTER 2025-07-26 15:31 | Emergency (ER) | payer OTHER, MEDICARE ==
[~2025-07-26] VITALS: Ht 177.8 cm; Wt 107.8 kg
--- OUTSIDE RECORDS SUMMARY | ~2025-07-26 | XMS | Continuity of Care Document ---
Demographics + + + | Address | [address] | | | [place] [address] | + + + | Preferred Language | Unknown | + + + | Marital Status | | + + + | Uatsdin Affiliation | Unknown | + + + | Race | White | + + + | Ethnic Group | Not or | + + + Author + + + | Author | [facility] | + + + | Organization | [facility] | + + + | Address | [address] | | | [place] [address] | + + + | Phone | | + + + Care Team Providers + + + + | Care Curb And Gutter Laborer Name | Role | Phone | + + + + Unavailable | Unavailable | + + + + Allergies No information. Encounters No information. Functional Status No information. Immunizations No information. Medications + + + + | date | description | facility | + + + + | (no date) | CHLORTHALIDONE | [facility] [place] | | | | [facility] | + + + + | (no date) | Semaglutide | [facility] [place] [facility] | | | | [facility] | + + + + | (no date) | CITALOPRAM HYDROBROMIDE | [facility] [place] [facility] | | | | [facility] | + + + + | (no date) | GABAPENTIN | [facility] [place] [facility] | | | | [facility] | + + + + | (no date) | LISINOPRIL | [facility] [place] | | | | [facility] | + + + + | (no date) | GLIPIZIDE [facility] [place] | | | | [facility] | + + + + | (no date) | IMATINIB MESYLATE | [facility] [place] | | | | [facility] | + + + + | (no date) | HYDROCODONE | [facility] [place] | | | BIT/ACETAMINOPHEN | [facility] | + + + + | (no date) | HYDROCODONE | [facility] [place] | | | BIT/ACETAMINOPHEN | [facility] | + + + + | (no date) | METFORMIN HCL | [facility] [place] | | | | [facility] | + + + + | (no date) | TAMSULOSIN HCL | [facility] [place] | | | | [facility] | + + + + Problems No information. Procedures No information. Results/Labs No information. Social History +--------+ + + | date | description | facility | +--------+ + + Vital Signs No information."
[2025-07-26] MEDS ORDERED: INSULIN GL100 UNIT/2 SQ (20:44)
[2025-07-26] MEDS ORDERED: ONDANSETRON HCL4 MG PO (20:44)
[2025-07-26] MEDS ORDERED: NYSTATIN15 G2 (20:44)
[2025-07-26] MEDS ORDERED: 8 HOUR650 MG PO (20:45)
[2025-07-26] MEDS ORDERED: EXCEDRIN EXTRA1 EAC1 PO (20:45)
[2025-07-26] MEDS ORDERED: HYDROmorphone HCL 1 MG/ML SYR IV ONE (21:30)
[2025-07-26 21:55] LABS: BASOPHILS 0.5 % (0.2-1.2); EOSINOPHILS 1.1 % (0.8-7.0); LYMPHOCYTES 36.6 % (21.8-53.1); MCH 32.5 PG (25.7-32.2); MCHC 35.2 g/dL (32.3-36.5); MCV 92.3 fL (79.0-92.2); MONOCYTES 11.0 % (5.3-12.2); NEUTROPHILS 50.6 % (34.0-67.9); RBC 4.15 M/uL (4.63-6.08)
[2025-07-26 22:11] LABS: ALT (SGPT) 26.0 U/L (14-59); AST (SGOT) 17.0 U/L (15-37); GLOMERULAR FILTRATION RATE,EST 94.0 mL/min (>60); PROTEIN, TOTAL 7.4 g/dL (6.4-8.2); UREA NITROGEN 14.0 mg/dL (7-18)
[2025-07-26] MEDS ORDERED: PERCOCET 5-3251 EACH PO (23:29)
[2025-07-26] MEDS ORDERED: OXYCODONE/ACETAMINOPHEN 1 TAB HOME.PACK PO ONE (23:45)
[2025-07-26 23:55] VITALS: BP 167/74
== END 2025-07-26 23:55 | disposition home or self-care (01) ==
LOC: ED 15:31
PROVIDERS: Family Medicine
DX: Z48.811 Encounter for surgical aftercare following surgery on the nervous system (principal); I10 Essential (primary) hypertension; E11.9 Type 2 diabetes mellitus without complications; Z79.4 Long term (current) use of insulin; Z79.84 Long term (current) use of oral hypoglycemic drugs; Z88.5 Allergy status to narcotic agent; Z87.891 Personal history of nicotine dependence
CPT/HCPCS: 36415; 80053; 85025; 96374; 99283-25; J1171